=== PATIENT | female | born 1935 | race Caucasian/White ===

== ENCOUNTER 2023-03-03 17:15 | Outpatient (CLI) | payer MEDICARE, BC, SELFPAY ==
--- NOTE | 2023-03-03 17:30 | CRLHL7_ITS ---
For Patients: As a result of the Century Cures Act, medical imaging exams and procedure reports are released immediately into your electronic medical record. You may view this report before your referring provider. If you have questions, please contact your health care provider. INDICATION: Multiple myeloma. TECHNIQUE: Thoracic spine MRI with contrast. The following sequences were obtained. Sagittal T1, T2 weighted and STIR sequences. Axial T2 weighted sequences. Axial and Sagittal T1 weighted post-contrast sequences. 15 cc of Dotarem gadolinium based intravenous contrast agent was used. COMPARISON: None. FINDINGS: Normal alignment and curvature of the thoracic spine. T11 compression fracture with moderately advanced, 60-70 percent height loss retropulsion of fragments into the spinal canal resulting in mild to moderate bony spinal canal stenosis. Likely underlying pathologic lesion is present. There also T1 hypointense/stir hyperintense marrow placing lesions within the thoracic spine, most prominently involving the T2 spinous process, the T8 vertebral body, and the T10 spinous process. A small lesion within the C7 anterior-inferior vertebral body corner is also noted. No cord signal abnormality. No intraspinal mass or pathologic intraspinal enhancement. Large partially exophytic left renal cyst. Smaller right renal cysts. Trace pleural effusions. Disc/endplates: Scattered sites of [id number] thoracic disc height loss and disc desiccation most prominent at T7-8 and T8-9. Spinal canal/neural foramina: [id number] spinal canal stenosis at T11 from the compression fracture. Mild neural foraminal narrowing T10-11 bilaterally. No significant spinal canal stenosis or neural foraminal narrowing elsewhere. IMPRESSION: 1. T11 pathologic compression fracture with moderately advanced height loss and retropulsed bone fragment contributing to [id number] bony spinal canal stenosis without cord impingement. 2. Multiple additional marrow replacing lesions compatible with provided history of multiple myeloma. No epidural/paraspinal tumor involvement. 3. Overall, no high-grade spinal canal/neural foraminal stenosis or impingement of neural structures at any thoracic level. Dictated by Cristiano Sanchez MD @ 03/04/2023 9:58:17 AM (Electronically Signed)
--- NOTE | 2023-03-03 18:30 | CRLHL7_ITS ---
For Patients: As a result of the 21st Century Cures Act, medical imaging exams and procedure reports are released immediately into your electronic medical record. You may view this report before your referring provider. If you have questions, please contact your health care provider. INDICATION: Multiple myeloma. TECHNIQUE: Lumbar spine MRI with contrast. The following sequences were obtained: Sagittal T1, T2 weighted and T2 weighted STIR sequences. Axial T1 and T2 weighted sequences. Axial and Sagittal T1 weighted post-contrast sequences. 15 cc of Dotarem gadolinium based contrast agent was administered. COMPARISON: None. FINDINGS: Transitional segment at the lumbosacral junction designated L5 in this report. Mildly accentuated lower lumbar lordosis. Moderate upper lumbar dextroconvex scoliosis. Rightward lateral listhesis of L2 on L3. No lumbar spine compression fractures. T11 fracture detailed within thoracic spine MRI report. T1 hypointense/stir hyperintense lesions involving the lumbar spine and sacrum, the largest within the left L5 transverse process/sacral ala pseudoarticulation. There is also a prominent partially visualized lesion involving the right medial iliac wing. No epidural or paraspinal soft tissue involvement. Lower cord/conus signal is normal. The conus terminates at a normal location. Bilateral renal cysts. Enlarged heterogenous appearing uterus. Discs/Endplates: Advanced disc height loss, disc desiccation and degenerative endplate remodeling at L2-3 on the left, L3-4 on the right, and L4-5. Mild disc degeneration elsewhere. Findings at individual levels as follows: T12-L1: No spinal canal or neural foraminal stenosis. L1-2: Mild disc bulge. Bilateral low-grade facet arthrosis. Mild left neural foraminal stenosis. No right neural foraminal stenosis or spinal canal stenosis. L2-3: Mild disc bulge with overlying osteophytic ridging, slightly asymmetric to the left. Bilateral low-grade facet arthrosis. Mild bilateral foraminal stenosis. No spinal canal stenosis. L3-4: Trace retrolisthesis. Mild disc bulge with overlying osteophytic ridging, asymmetric to the right. Bilateral facet arthrosis, greater on the right. Mild right neural foraminal stenosis. No left neural foraminal stenosis or spinal canal stenosis. L4-5: 7 millimeters anterolisthesis. Superior disc unroofing and superimposed mild disc bulge with overlying osteophytic ridging. Bilateral facet arthrosis. Mild bilateral neural foraminal stenosis. No spinal canal stenosis. L5-S1: No spinal canal or neural foraminal stenosis. Imaged SI joints: Within normal limits. Imaged sacrum: Within normal limits. IMPRESSION: 1. Multiple marrow replacing lesions within the lumbosacral region and iliac wing, compatible with history of multiple myeloma. The largest deposits are present within the left L5 transverse process/sacral ala pseudoarticulation as well as the right medial iliac wing. No epidural or paraspinal soft tissue involvement of tumor. No pathologic lumbar compression fractures. 2. Lumbar spondylosis with moderate upper lumbar degenerative dextroconvex scoliosis, secondary to multilevel asymmetric disc height loss and degenerative subluxations. No high-grade spinal canal/neural foraminal stenosis or impingement of neural structures at any imaged level. 3. Enlarged heterogenous appearing uterus. Consider fibroid changes. Ultrasound would be useful for more complete assessment, if clinically indicated. Dictated by Cristiano Sanchez MD @ 03/04/2023 10:13:17 AM (Electronically Signed)
--- NOTE | 2023-03-03 20:30 | CRLHL7_ITS ---
For Patients: As a result of the Century Cures Act, medical imaging exams and procedure reports are released immediately into your electronic medical record. You may view this report before your referring provider. If you have questions, please contact your health care provider. Indication: Multiple myeloma, possible fracture Technique: AP pelvis and two views each hip, five views total Comparison: None Findings: Subtle lytic lesions throughout the osseous structures noted without evidence of pathologic fracture. Normal trabecular pattern of both femoral necks. Intact pubic rami. Severe degenerative changes lower lumbar spine. Spurring of the iliac spines and at the greater trochanters. Heterotopic densities adjacent to the right ischial tuberosity. Impression: No evidence of pathologic fracture by conventional radiography. Dictated by Jean-Paul Walton MD @ 03/04/2023 9:49:04 AM (Electronically Signed)
== END 2023-03-03 17:16 | disposition home or self-care (01) ==
LOC: MRI 17:19
PROVIDERS: PCP Internal Medicine; Visit Provider Internal Medicine
DX: C90.00 Multiple myeloma not having achieved remission (principal); M47.896 Other spondylosis, lumbar region; N85.2 Hypertrophy of uterus; S72.142A Displaced intertrochanteric fracture of left femur, initial encounter for closed fracture
CPT/HCPCS: 72157; 72158; 73521; A9575